=== PATIENT | female | born 1955 | race Caucasian/White ===

== ENCOUNTER 2023-04-19 12:51 | Emergency (ER) | payer OTHER, SELFPAY ==
[2023-04-19 13:06] VITALS: BP 128/71; PULSE 85; RESP 16; TEMP 36.6; O2SAT 96
--- NOTE | 2023-04-19 14:07 | ED.SKABFB ---
HPI - Skin/Abscess/Foreign Bdy General Time Seen by Provider: 14:07 Date Seen: 04/19/23 Chief complaint: Skin/Abscess/Foreign Body Stated complaint: L leg wound Time Seen by Provider: 04/19/23 13:55 Source: patient and RN notes reviewed Mode of arrival: ambulatory Limitations: no limitations History of Present Illness HPI narrative: Camelia is a very pleasant 68-year-old female with history of multiple medication allergies, chronic lower extremity wound wounds, chronic pain who comes to the emergency room for evaluation of drainage from 1 of her wounds. Patient notes that she just moved from [place] to [facility] in [place] 2 days ago. She had been doctoring in the [place] system for lower extremity open wounds. She states over the past 2 days she has had more drainage from this area and now it does have a bad odor to it. She also thinks that there is more erythema than normal and it is coming up higher on her leg. She notes that she is tired but she really has not had any vomiting fever or chills. In the past amoxicillin or Levaquin have worked well for her. She has not yet established with our clinic system nor wound care. Patient denies history of DVT and she denies significant calf tenderness. Related Data Home Medications Medication Instructions Recorded Confirmed acetaminophen 500 mg tablet 1,000 mg PO Q8H 04/19/23 04/19/23 albuterol sulfate 90 mcg/actuation 2 puff inhalation Q4H PRN 04/19/23 04/19/23 aerosol inhaler allopurinol 100 mg tablet 200 mg PO DAILY 04/19/23 04/19/23 aspirin 81 mg chewable tablet 1 tab PO DAILY 04/19/23 04/19/23 bisacodyl 10 mg rectal suppository 10 mg KS DAILY PRN 04/19/23 04/19/23 budesonide-formoterol HFA 160 2 puff inhalation Q12H 04/19/23 04/19/23 mcg-4.5 mcg/actuation aerosol inhaler buprenorphine 4 mg-naloxone 1 mg 1 film sublingual DAILY 04/19/23 04/19/23 sublingual film bupropion HCl (smoking deter) 150 150 mg PO BID 04/19/23 04/19/23 mg tablet,12 hr sustained-release(smoking deterrent) cholecalciferol (vitamin D3) 50 50 mcg PO DAILY 04/19/23 04/19/23 mcg (2,000 unit) capsule cyanocobalamin (vitamin B-12) 1,000 mcg IM .once monthly 04/19/23 04/19/23 1,000 mcg/mL injection solution hydromorphone 2 mg tablet 2 mg PO BID PRN 04/19/23 04/19/23 hydroxyzine HCl 50 mg tablet 50 mg PO 3XD 04/19/23 04/19/23 levothyroxine 137 mcg tablet 137 mcg PO DAILY 04/19/23 04/19/23 lidocaine 4 % topical cream 1 applic topical QID PRN 04/19/23 04/19/23 lubiprostone 24 mcg capsule 24 mcg PO BID 04/19/23 04/19/23 multivit,tx with iron 27 1 tab PO DAILY 04/19/23 04/19/23 zh-ebfrgpi-qgxwy acid 0.4 mg-minerals tablet naloxone 4 mg/actuation nasal spray 1 spray intranasal ONCE PRN 04/19/23 04/19/23 nitroglycerin 0.4 mg sublingual 0.4 mg sublingual Q5M PRN 04/19/23 04/19/23 tablet omeprazole 40 mg capsule,delayed 40 mg PO BID 04/19/23 04/19/23 release polyethylene glycol 3350 17 17 g PO TID 04/19/23 04/19/23 gram/dose oral powder potassium chloride 10 mEq 20 meq PO DAILY 04/19/23 04/19/23 tablet,extended release rosuvastatin 5 mg tablet 5 mg PO .once weekly 04/19/23 04/19/23 sennosides 8.6 mg-docusate sodium 3 tab-cap PO BID 04/19/23 04/19/23 50 mg tablet (Stimulant Laxative Plus) spironolactone 25 mg tablet 50 mg PO DAILY 04/19/23 04/19/23 torsemide 100 mg tablet 100 mg PO DAILY 04/19/23 04/19/23 venlafaxine 150 mg 150 mg PO DAILY 04/19/23 04/19/23 capsule,extended release 24 hr Previous Rx's Medication Instructions Recorded levofloxacin 250 mg tablet 250 mg PO DAILY 6 days #6 tabs 04/19/23 Allergies Allergy/AdvReac Type Severity Reaction Status Date / Time acetaminophen Allergy Unknown Verified 04/19/23 13:18 [From Panlor (hydrocodone-acetamin)] clavulanic acid Allergy Unknown Verified 04/19/23 13:18 codeine Allergy Unknown Verified 04/19/23 13:18 duloxetine Allergy Unknown Verified 04/19/23 13:18 erythromycin base Allergy Unknown Verified 04/19/23 13:18 gabapentin Allergy Unknown Verified 04/19/23 13:18 hydrocodone Allergy Unknown Verified 04/19/23 13:18 ibuprofen Allergy Unknown Verified 04/19/23 13:18 ketorolac Allergy Unknown Verified 04/19/23 13:18 propoxyphene Allergy Unknown Verified 04/19/23 13:18 rizatriptan Allergy Unknown Verified 04/19/23 13:18 sulfamethoxazole Allergy Unknown Verified 04/19/23 13:18 [From Sulfamethoxazole-Trimethoprim] sumatriptan [From Imitrex] Allergy Unknown Verified 04/19/23 13:18 tramadol Allergy Unknown Verified 04/19/23 13:18 trimethoprim Allergy Unknown Verified 04/19/23 13:18 [From Sulfamethoxazole-Trimethoprim] Review of Systems Status of ROS: Reports: 10 or more systems reviewed and unremarkable except as noted in History and below Const: Reports: fatigue; Denies: fever or chills Eyes: Denies: change in vision ENMT: Denies: neck pain or difficulty swallowing Cardio: Reports: swelling of feet/ankles (Chronic); Denies: chest pain, lightheadedness or shortness of breath with exertion Resp: Denies: shortness of breath or cough GI: Denies: abdominal pain, nausea, vomiting or difficulty swallowing : Denies: painful urination Musculo: Reports: extremity swelling (Chronic); Denies: neck pain or extremity pain Integ/Breast: Reports: redness, skin swelling and sores Endo: Reports: fatigue PFSH PFSH Social History Smoking Status: Never smoker Do you use any of these nicotine containing products: None Second hand tobacco smoke exposure: No How often do you have a drink containing alcohol: never AUDIT-C Alcohol total score: 0 Non-prescribed substance use: denies use service: No Exam Narrative: Exam Narrative: Alert and oriented. Nontoxic in appearance. Heart with regular rate in lungs are clear. Abdomen soft. Examination of the left lower extremity shows multiple open wounds the largest being on the lower left leg approximately grapefruit size. There is significant granulation tissue but on the medial edge there is purulent discharge. Further there is a light erythema up to just below the knee. There is some discomfort with palpation on the back of the leg as well. Const: Vital Signs, click to edit/add: Vital Signs - 24 hr 04/19/23 13:06 Temperature 97.8 F Pulse Rate [Pulse Oximeter] 85 Respiratory Rate 16 Blood Pressure [Ri ght Upper Arm] 128/71 Pulse Oximetry 96 Oxygen Delivery Me thod Room Air Documenting provider has reviewed patient's vital signs: yes Course Course ED Course: At this time will obtain labs including CBC, basic, CRP. Do not feel that patient is septic at this time but of course am concerned regarding increasing erythema and discharge. Wound culture has been accomplished. Will also obtain lower extremity Doppler to rule out any evidence of DVT. Reevaluation(s) Reevaluation #1: Patient negative for DVT. White count normal at 10.4 but CRP is elevated at 2.3. Creatinine is 1.5. Potassium was low at 3.3. Reevaluation #2: Nurse practitioner Sushila from the wound care center was able to see Camelia in the ED. They have set up an appointment for next week. In addition we are providing Camelia with wound coverings. Vital Signs Vital signs: Initial Vital Signs Temperature 97.8 F 04/19/23 13:06 Temperature Source Temporal Artery Scan 04/19/23 13:06 Pulse Rate 85 04/19/23 13:06 Respiratory Rate 16 04/19/23 13:06 Blood Pressure 128/71 04/19/23 13:06 Blood Pressure Mean 90 04/19/23 13:06 Blood Pressure Position Sitting 04/19/23 13:06 Pulse Oximetry 96 04/19/23 13:06 Oxygen Delivery Method Room Air 04/19/23 13:06 Vital Signs Temperature 97.8 F 04/19/23 13:06 Pulse Rate 85 04/19/23 13:06 Respiratory Rate 16 04/19/23 13:06 Blood Pressure 128/71 04/19/23 13:06 Pulse Oximetry 96 04/19/23 13:06 Oxygen Delivery Method Room Air 04/19/23 13:06 Temperature 97.8 F 04/19/23 13:06 Pulse Rate 85 04/19/23 13:06 Respiratory Rate 16 04/19/23 13:06 Blood Pressure 128/71 04/19/23 13:06 Pulse Oximetry 96 04/19/23 13:06 Oxygen Delivery Method Room Air 04/19/23 13:06 Medications Administered Medications: Discontinued Medications Generic Name Dose Route Start Last Admin Trade Name Donnie PRN Reason Stop Dose Admin Levofloxacin 250 mg 04/19/23 15:56 04/19/23 16:03 Levofloxacin 250 Mg Tablet PO 04/19/23 15:57 250 mg ONCE ONE Administration MDM - Skin/Abscess/Foreign Bdy MDM Narrative Medical decision making narrative: 1. Lower extremity wound infection-patient creatinine is 1.5. After discussion with pharmacy will use Levaquin as patient notes success with Levaquin and amoxicillin in the past. However, I do have concerns as she does have a creatinine of 1.5 and a GFR of 38. I spoke with pharmacy and we are going to do Levaquin 250 mg daily for 7 days. Will need to make sure she has a creatinine and potassium check next week. Will also have her follow-up with our wound care clinic. 2. Hypokalemia-mild suggest increasing potassium containing foods. 3. Disposition -home at this time. Seek medical attention for vomiting, fever, worsening symptoms. Lab Data Attestation: I reviewed the patient's lab results. Labs: Lab Results 04/19/23 Range/Units 14:35 WBC 10.40 (4.50-11.00) K/uL RBC 3.61 L (4.00-5.20) m/uL Hgb 10.8 L (12.0-16.0) gm/dL Hct 34.4 (33.0-51.0) % MCV 95 (80-100) fL MCH 30 (26-34) pg MCHC 31 L (32-36) gm/dL RDW Coeff of Muriel 15.6 H (11.5-15.5) % Plt Count 355 (140-440) K/uL Neut % (Auto) 62.9 (42.0-72.0) % Lymph % (Auto) 24.4 (20-44) % [place] % (Auto) 8.2 (0.0-11.0) % Eos % (Auto) 4.0 (0.0-7.0) % Baso % (Auto) 0.3 (0.0-3.0) % Neut # (Auto) 6.54 (1.7-7.0) K/uL Lymph # (Auto) 2.54 (0.90-2.90) K/uL [place] # (Auto) 0.90 (0.00-0.90) K/UL Eos # (Auto) 0.42 (0.00-0.50) K/uL Baso # (Auto) 0.03 (0.00-0.30) K/uL Abs Immat Gran (auto) 0.02 (0.00-0.30) K/uL Imm/Tot Granulo (auto) 0.2 % Sodium 137 (135-149) mmol/L Potassium 3.3 L (3.6-5.1) mmol/L Chloride 101 (96-114) mmol/L Carbon Dioxide 28 (20-32) mmol/L Anion Gap 8 (7-15) mEq/L BUN 31 H (7-30) mg/dL Creatinine 1.5 (0.5-1.5) mg/dL Estimated GFR 38 ml/min Glucose 87 (60-115) mg/dL Calcium 8.8 (8.4-10.6) mg/dL C-Reactive Protein 2.3 H (0.5-1.0) mg/dL Imaging Data Venous US: Attestation: I have reviewed the pertinent imaging results. Discharge Plan Discharge Clinical Impression: Hypokalemia Cellulitis Qualifiers: Site of cellulitis: extremity Site of cellulitis of extremity: lower extremity Laterality: left Qualified Code(s): L03.116 - Cellulitis of left lower limb Patient Disposition: Home, Self-Care Condition: Unchanged Additional Instructions: Continue Levaquin for 6 more days. You received your 1st dose here in the emergency room. Subsequent doses sent to the pharmacy. During the that time on Levaquin, stay well hydrated. You will need to have blood work checked next week to ensure no change to your kidney function or potassium levels. You are mildly low in potassium so I would recommend increasing potassium rich foods which include potatoes and vegetables. [place] juice would also contain potassium. Follow-up as previously scheduled. Return to the emergency room for worsening symptoms especially fever chills and vomiting. Prescriptions: New levofloxacin 250 mg tablet 250 mg PO DAILY 6 Days Qty: 6 0RF No Action acetaminophen 500 mg tablet 1,000 mg PO Q8H allopurinol 100 mg tablet 200 mg PO DAILY aspirin 81 mg tablet,chewable 1 tab PO DAILY budesonide-formoterol 160-4.5 mcg/actuation HFA aerosol inhaler 2 puff inhalation Q12H buprenorphine-naloxone 4-1 mg film 1 film sublingual DAILY cyanocobalamin (vitamin B-12) 1,000 mcg/mL solution 1,000 mcg IM .once monthly bupropion HCl (smoking deter) 150 mg tablet extended release 12 hr 150 mg PO BID sennosides-docusate sodium [Stimulant Laxative Plus] 8.6-50 mg tablet 3 tab-cap PO BID multivitamin,[id number]-rgyr-Bw-FA-min 27-0.4 mg tablet 1 tab PO DAILY levothyroxine 137 mcg tablet 137 mcg PO DAILY lubiprostone 24 mcg capsule 24 mcg PO BID omeprazole 40 mg capsule,delayed release(DR/EC) 40 mg PO BID polyethylene glycol 3350 17 gram/dose powder 17 g PO TID potassium chloride 10 mEq tablet extended release 20 meq PO DAILY rosuvastatin 5 mg tablet 5 mg PO .once weekly spironolactone 25 mg tablet 50 mg PO DAILY venlafaxine 150 mg capsule,extended release 24hr 150 mg PO DAILY torsemide 100 mg tablet 100 mg PO DAILY cholecalciferol (vitamin D3) 50 mcg (2,000 unit) capsule 50 mcg PO DAILY albuterol sulfate 90 mcg/actuation HFA aerosol inhaler 2 puff inhalation Q4H PRN bisacodyl 10 mg suppository 10 mg KS DAILY PRN hydromorphone 2 mg tablet 2 mg PO BID PRN Rx Instructions: Take 1 tablet by mouth every morning as needed (between 6-10). Take 1/2 tablet by mouth in the afternoon as needed. Take 1/2 tablet by mouth every evening as needed (between 4-9pm). hydroxyzine HCl 50 mg tablet 50 mg PO 3XD lidocaine 4 % cream 1 applic topical QID PRN naloxone 4 mg/actuation spray,non-aerosol 1 spray INTRANASAL ONCE PRN Patient Comments: [NO ORIGINAL SIG] nitroglycerin 0.4 mg tablet, sublingual 0.4 mg sublingual Q5M PRN Rx Instructions: max 3 tablets Follow Up/Referrals: Provider,Not a Local [Primary Care Provider] - Stand Alone Forms: [employer] Info Instructions
--- NOTE | 2023-04-19 14:45 | CRLHL7_ITS ---
For Patients: As a result of the Century Cures Act, medical imaging exams and procedure reports are released immediately into your electronic medical record. You may view this report before your referring provider. If you have questions, please contact your health care provider. INDICATION: Leg swelling. TECHNIQUE: Ultrasound venous duplex lower left extremity. Compression venous exam was performed using chappell-scale, color Doppler, and spectral Doppler analysis. COMPARISON: None. FINDINGS: Deep veins: Sonographic imaging demonstrates the left common femoral, deep femoral, superficial femoral, popliteal, posterior tibial, peroneal and the contralateral right common femoral veins to be fully compressible with normal color Doppler blood flow. Superficial veins: Greater saphenous vein is fully compressible. No popliteal cyst. Mild soft tissue edema at the level of the calf. IMPRESSION: No deep vein thrombosis in the left lower extremity. Dictated by Diego Rice MD @ 04/19/2023 3:55:32 PM (Electronically Signed)
[2023-04-19 14:47] LABS: Basophils Absolute Auto 0.03 K/uL (0.00-0.30); Basophils Percent Auto 0.3 % (0.0-3.0); Eosinophils Absolute Auto 0.42 K/uL (0.00-0.50); Hematocrit 34.4 % (33.0-51.0); Hemoglobin* 10.8 gm/dL (12.0-16.0); Immature Granulocytes Abs Auto 0.02 K/uL (0.00-0.30); Immature Granulocytes Pct Auto 0.2 %; Lymphocytes Absolute Auto 2.54 K/uL (0.90-2.90); Lymphocytes Percent Auto 24.4 % (20-44); Mean Corpuscular HGB Conc 31 gm/dL (32-36); Mean Corpuscular Hemoglobin 30 pg (26-34); Mean Corpuscular Volume 95 fL (80-100); Monocytes Percent Auto 8.2 % (0.0-11.0); Neutrophils Absolute Auto 6.54 K/uL (1.7-7.0); Neutrophils Percent Auto 62.9 % (42.0-72.0); Platelet Count* 355 K/uL (140-440); RDW Coefficient of Variation % 15.6 % (11.5-15.5); Red Blood Count 3.61 m/uL (4.00-5.20)
[2023-04-19 14:55] LABS: Slide Review Reflex No
[2023-04-19 15:09] LABS: Chloride* 101 mmol/L (96-114); Potassium* 3.3 mmol/L (3.6-5.1); Sodium* 137 mmol/L (135-149)
[2023-04-19 15:12] LABS: Creatinine* 1.5 mg/dL (0.5-1.5); Estimated Glomerular Filt Rate 38 ml/min
[2023-04-19 15:13] LABS: Anion Gap 8 mEq/L (7-15); Blood Urea Nitrogen* 31 mg/dL (7-30); Calcium* 8.8 mg/dL (8.4-10.6); Carbon Dioxide* 28 mmol/L (20-32); Glucose* 87 mg/dL (60-115)
[2023-04-19 15:16] LABS: C Reactive Protein* 2.3 mg/dL (0.5-1.0)
[2023-04-19] MEDS: levoFLOXacin 250 MG TABLET PO (16:03)
--- NOTE | 2023-04-19 16:15 | ED.NURSE ---
Wound dressed using instructions from [facility] in [facility] Clinic. MediHoney applied to open wound beds. These areas then covered with Xeroform petroleum gauze. ABD pads applied on top of Xeroform and secured with large stockinet. Instructions written on physician order form for pt's AL. Per Dorys, continue dressing changes every Sunday, , and Sunday as previously doing. Wound Clinic appointment @ 0800 on 05/01/23. All information placed on physician paperwork.
== END 2023-04-19 16:20 | disposition home or self-care (01) ==
PROVIDERS: Emergency Provider Family Medicine
DX: L03.116 Cellulitis of left lower limb (principal); E87.6 Hypokalemia
CPT/HCPCS: 36415; 80048; 85025; 86140; 87040; 87070; 87186; 93971; 99284; A9270

== ENCOUNTER 2023-05-01 07:58 | Outpatient (CLI) | payer OTHER, SELFPAY | END 2023-05-01 07:59 | disposition home or self-care (01) | LOC: WOUND 07:59 | PROVIDERS: Visit Provider Nurse Practitioner Family | DX: I87.313 Chronic venous hypertension (idiopathic) with ulcer of bilateral lower extremity (principal); L97.212 Non-pressure chronic ulcer of right calf with fat layer exposed; L97.818 Non-pressure chronic ulcer of other part of right lower leg with other specified severity; L97.822 Non-pressure chronic ulcer of other part of left lower leg with fat layer exposed; L97.828 Non-pressure chronic ulcer of other part of left lower leg with other specified severity; I89.0 Lymphedema, not elsewhere classified; I87.2 Venous insufficiency (chronic) (peripheral) | CPT/HCPCS: 11042; 11045; 97602; 99213 ==

== ENCOUNTER 2023-05-10 09:57 | Outpatient (CLI) | payer OTHER, SELFPAY | END 2023-05-10 09:58 | disposition home or self-care (01) | LOC: WOUND 09:57 | PROVIDERS: Visit Provider Nurse Practitioner Family | DX: I87.313 Chronic venous hypertension (idiopathic) with ulcer of bilateral lower extremity (principal); I89.0 Lymphedema, not elsewhere classified; I87.2 Venous insufficiency (chronic) (peripheral); L97.818 Non-pressure chronic ulcer of other part of right lower leg with other specified severity; L97.828 Non-pressure chronic ulcer of other part of left lower leg with other specified severity; L97.222 Non-pressure chronic ulcer of left calf with fat layer exposed; L97.212 Non-pressure chronic ulcer of right calf with fat layer exposed | CPT/HCPCS: 29581 ==

== ENCOUNTER 2023-05-17 09:28 | Outpatient (CLI) | payer OTHER, SELFPAY | END 2023-05-17 09:29 | disposition home or self-care (01) | LOC: WOUND 09:28 | PROVIDERS: Visit Provider Family Medicine | DX: I87.313 Chronic venous hypertension (idiopathic) with ulcer of bilateral lower extremity (principal); L97.812 Non-pressure chronic ulcer of other part of right lower leg with fat layer exposed; L97.212 Non-pressure chronic ulcer of right calf with fat layer exposed; L97.822 Non-pressure chronic ulcer of other part of left lower leg with fat layer exposed; I89.0 Lymphedema, not elsewhere classified; I87.2 Venous insufficiency (chronic) (peripheral) | CPT/HCPCS: 11042; 11045 ==

== ENCOUNTER 2023-05-25 12:56 | Outpatient (CLI) | payer OTHER, SELFPAY | END 2023-05-25 12:57 | disposition home or self-care (01) | LOC: WOUND 12:56 | PROVIDERS: Visit Provider Nurse Practitioner Family | DX: I87.313 Chronic venous hypertension (idiopathic) with ulcer of bilateral lower extremity (principal); I87.2 Venous insufficiency (chronic) (peripheral); L97.812 Non-pressure chronic ulcer of other part of right lower leg with fat layer exposed; L97.822 Non-pressure chronic ulcer of other part of left lower leg with fat layer exposed; I89.0 Lymphedema, not elsewhere classified | CPT/HCPCS: 87070; 87186; 97597; G0463 ==

== ENCOUNTER 2023-06-08 13:57 | Outpatient (CLI) | payer OTHER, SELFPAY | END 2023-06-08 13:58 | disposition home or self-care (01) | LOC: WOUND 13:57 | PROVIDERS: Visit Provider Nurse Practitioner Family | DX: I87.313 Chronic venous hypertension (idiopathic) with ulcer of bilateral lower extremity (principal); L97.812 Non-pressure chronic ulcer of other part of right lower leg with fat layer exposed; L97.212 Non-pressure chronic ulcer of right calf with fat layer exposed; L97.822 Non-pressure chronic ulcer of other part of left lower leg with fat layer exposed; I89.0 Lymphedema, not elsewhere classified | CPT/HCPCS: 97597 ==

== ENCOUNTER 2023-06-15 13:56 | Outpatient (CLI) | payer MEDICARE, MEDICAID, SELFPAY | END 2023-06-15 13:57 | disposition home or self-care (01) | LOC: WOUND 13:56 | PROVIDERS: Visit Provider Nurse Practitioner Family | DX: I87.313 Chronic venous hypertension (idiopathic) with ulcer of bilateral lower extremity (principal); I87.2 Venous insufficiency (chronic) (peripheral); L97.812 Non-pressure chronic ulcer of other part of right lower leg with fat layer exposed; L97.212 Non-pressure chronic ulcer of right calf with fat layer exposed; L97.822 Non-pressure chronic ulcer of other part of left lower leg with fat layer exposed; I89.0 Lymphedema, not elsewhere classified | CPT/HCPCS: 97597 ==

== ENCOUNTER 2023-06-22 13:59 | Outpatient (CLI) | payer MEDICARE, MEDICAID, SELFPAY | END 2023-06-22 14:00 | disposition home or self-care (01) | LOC: WOUND 13:59 | PROVIDERS: Visit Provider Nurse Practitioner Family | DX: I87.313 Chronic venous hypertension (idiopathic) with ulcer of bilateral lower extremity (principal); L97.212 Non-pressure chronic ulcer of right calf with fat layer exposed; L97.822 Non-pressure chronic ulcer of other part of left lower leg with fat layer exposed; I89.0 Lymphedema, not elsewhere classified | CPT/HCPCS: 97597 ==

== ENCOUNTER 2023-06-29 13:56 | Outpatient (CLI) | payer MEDICARE, MEDICAID, SELFPAY | END 2023-06-29 13:57 | disposition home or self-care (01) | LOC: WOUND 13:56 | PROVIDERS: Visit Provider Nurse Practitioner Family | DX: I87.313 Chronic venous hypertension (idiopathic) with ulcer of bilateral lower extremity (principal); L97.212 Non-pressure chronic ulcer of right calf with fat layer exposed; L97.822 Non-pressure chronic ulcer of other part of left lower leg with fat layer exposed; I87.2 Venous insufficiency (chronic) (peripheral); I89.0 Lymphedema, not elsewhere classified | CPT/HCPCS: 97597 ==

== ENCOUNTER 2023-07-04 15:02 | Emergency (ER) | payer MEDICARE, MEDICAID, SELFPAY ==
[2023-07-04 15:11] VITALS: BP 123/65; PULSE 78; RESP 14; TEMP 36.8; O2SAT 96
[2023-07-04 15:45] LABS: Lactate* 0.8 mmol/L (0.5-1.9)
[2023-07-04 15:50] LABS: Basophils Absolute Auto 0.03 K/uL (0.00-0.30); Basophils Percent Auto 0.3 % (0.0-3.0); Eosinophils Absolute Auto 0.41 K/uL (0.00-0.50); Eosinophils Percent Auto 4.7 % (0.0-7.0); Hematocrit 39.7 % (33.0-51.0); Hemoglobin* 12.8 gm/dL (12.0-16.0); Immature Granulocytes Abs Auto 0.01 K/uL (0.00-0.30); Immature Granulocytes Pct Auto 0.1 %; Lymphocytes Absolute Auto 3.84 K/uL (0.90-2.90); Lymphocytes Percent Auto 43.9 % (20-44); Mean Corpuscular HGB Conc 32 gm/dL (32-36); Mean Corpuscular Hemoglobin 30 pg (26-34); Mean Corpuscular Volume 93 fL (80-100); Monocytes Percent Auto 8.6 % (0.0-11.0); Neutrophils Percent Auto 42.4 % (42.0-72.0); Platelet Count* 302 K/uL (140-440); RDW Coefficient of Variation % 16.6 % (11.5-15.5); Red Blood Count 4.25 m/uL (4.00-5.20); White Blood Count* 8.74 K/uL (4.50-11.00)
[2023-07-04 15:51] LABS: Slide Review Reflex No
--- NOTE | 2023-07-04 15:59 | ED.NURSE ---
White pustule noted in wound bed on LLE.
[2023-07-04 16:12] LABS: Chloride* 100 mmol/L (96-114); Sodium* 137 mmol/L (135-149)
[2023-07-04 16:15] LABS: Anion Gap 10 mEq/L (7-15); Carbon Dioxide* 27 mmol/L (20-32); Creatinine* 1.3 mg/dL (0.5-1.5); Estimated Glomerular Filt Rate 45 ml/min; Potassium* 3.5 mmol/L (3.6-5.1)
[2023-07-04 16:16] LABS: Blood Urea Nitrogen* 38 mg/dL (7-30); Glucose* 85 mg/dL (60-115)
[2023-07-04 16:19] LABS: Calcium* 9.3 mg/dL (8.4-10.6)
--- NOTE | 2023-07-04 17:25 | ED_ITS ---
HPI - Skin/Abscess/Foreign Bdy General Date Seen: 07/04/23 Chief complaint: Skin/Abscess/Foreign Body Stated complaint: Wound issues both lower legs-sent by [facility] Time Seen by Provider: 07/04/23 16:34 Source: patient Mode of arrival: ambulatory Limitations: no limitations History of Present Illness HPI narrative: Patient is a 68-year-old female presenting to the emergency department for worsening wounds on bilateral lower extremities. She is history of venous stasis ulcers. She lives at [facility] periods nursing staff brought her in today because they were concerned she could be having sepsis because of the worsening appearance of the wounds. The patient states the wound sizes are the same but she said increased erythema and discomfort over bilateral lower extremities. She recently finished Flagyl and doxycycline for this. She did have some cat bites on her legs and that is why she was placed on the antibiotics. Has a history of lymphedema. States in the past she has got dizziness and nausea and vomiting with antibiotics. Does admit to headache and dizziness for the past few days and this a blood pressure has been on the lower end. Patient states she sees Wound Care every Sunday and she does think the redness is worse than previous time she saw wound care last week. Does have appointments this Sunday with a vascular physician about her wounds. Has been seen them for these wounds and I previous ultrasound studies done. She otherwise has no other complaints at this time. Denies weakness, numbness, chest pain, shortness of breath, fevers, chills. Related Data Home Medications Medication Instructions Recorded Confirmed acetaminophen 500 mg tablet 1,000 mg PO Q8H 04/19/23 07/04/23 albuterol sulfate 90 mcg/actuation 2 puff inhalation Q4H PRN 04/19/23 04/19/23 aerosol inhaler allopurinol 100 mg tablet 200 mg PO DAILY 04/19/23 07/04/23 aspirin 81 mg chewable tablet 1 tab PO DAILY 04/19/23 07/04/23 bisacodyl 10 mg rectal suppository 10 mg [place] DAILY PRN 04/19/23 04/19/23 budesonide-formoterol HFA 160 2 puff inhalation Q12H 04/19/23 07/04/23 mcg-4.5 mcg/actuation aerosol inhaler buprenorphine 4 mg-naloxone 1 mg 1 film sublingual DAILY 04/19/23 07/04/23 sublingual film bupropion HCl (smoking deter) 150 150 mg PO BID 04/19/23 04/19/23 mg tablet,12 hr sustained-release(smoking deterrent) cholecalciferol (vitamin D3) 50 50 mcg PO DAILY 04/19/23 07/04/23 mcg (2,000 unit) capsule cyanocobalamin (vitamin B-12) 1,000 mcg IM .once monthly 04/19/23 07/04/23 1,000 mcg/mL injection solution hydromorphone 2 mg tablet 2 mg PO BID PRN 04/19/23 07/04/23 hydroxyzine HCl 50 mg tablet 50 mg PO 3XD 04/19/23 07/04/23 levothyroxine 137 mcg tablet 137 mcg PO DAILY 04/19/23 07/04/23 lidocaine 4 % topical cream 1 applic topical QID PRN 04/19/23 04/19/23 lubiprostone 24 mcg capsule 24 mcg PO BID 04/19/23 07/04/23 multivit,tx with iron 27 1 tab PO DAILY 04/19/23 04/19/23 ki-[id number]-khmkw acid 0.4 mg-minerals tablet naloxone 4 mg/actuation nasal spray 1 spray intranasal ONCE PRN 04/19/2312/03 nitroglycerin 0.4 mg sublingual 0.4 mg sublingual Q5M PRN 04/19/23 04/19/23 tablet omeprazole 40 mg capsule,delayed 40 mg PO BID 04/19/23 07/04/23 release polyethylene glycol 3350 17 17 g PO TID 04/19/23 07/04/23 gram/dose oral powder potassium chloride 10 mEq 20 meq PO DAILY 04/19/23 07/04/23 tablet,extended release rosuvastatin 5 mg tablet 5 mg PO .once weekly 04/19/23 07/04/23 sennosides 8.6 mg-docusate sodium 3 tab-cap PO BID 04/19/23 04/19/23 50 mg tablet (Stimulant Laxative Plus) spironolactone 25 mg tablet 50 mg PO DAILY 04/19/23 07/04/23 torsemide 100 mg tablet 100 mg PO DAILY 04/19/23 07/04/23 venlafaxine 150 mg 150 mg PO DAILY 04/19/23 07/04/23 capsule,extended release 24 hr Previous Rx's Medication Instructions Recorded acetic acid 0.25 % irrigation 10 ml irrigation .every other day 04/19/23 solution #500 mL doxycycline hyclate 100 mg capsule 100 mg PO BID #10 caps 07/04/23 Allergies Allergy/AdvReac Type Severity Reaction Status Date / Time acetaminophen Allergy Unknown Verified 04/19/23 13:18 [From Panlor (hydrocodone-acetamin)] clavulanic acid Allergy Unknown Verified 04/19/23 13:18 codeine Allergy Unknown Verified 04/19/23 13:18 duloxetine Allergy Unknown Verified 04/19/23 13:18 erythromycin base Allergy Unknown Verified 04/19/23 13:18 gabapentin Allergy Unknown Verified 04/19/23 13:18 hydrocodone Allergy Unknown Verified 04/19/23 13:18 ibuprofen Allergy Unknown Verified 04/19/23 13:18 ketorolac Allergy Unknown Verified 04/19/23 13:18 propoxyphene Allergy Unknown Verified 04/19/23 13:18 rizatriptan Allergy Unknown Verified 04/19/23 13:18 sulfamethoxazole Allergy Unknown Verified 04/19/23 13:18 [From Sulfamethoxazole-Trimethoprim] sumatriptan [From Imitrex] Allergy Unknown Verified 04/19/23 13:18 tramadol Allergy Unknown Verified 04/19/23 13:18 trimethoprim Allergy Unknown Verified 04/19/23 13:18 [From Sulfamethoxazole-Trimethoprim] Review of Systems Status of ROS: Reports: 10 or more systems reviewed and unremarkable except as noted in History and below [facility] Social History Smoking Status: Never smoker Do you use any of these nicotine containing products: None Second hand tobacco smoke exposure: No How often do you have a drink containing alcohol: never AUDIT-C Alcohol total score: 0 Non-prescribed substance use: denies use service: No Exam Narrative: Exam Narrative: Const: Well-nourished, Well-developed, in no distress Eyes: PERRL, no conjunctival injection, and symmetrical lids HENT: Atraumatic external nose and ears. Moist mucous membranes. Neck: Symmetric, trachea midline, No thyromegaly. CVS: RRR, No murmurs or gallops. Peripheral pulses 2+ and equal in all extremities RESP: Unlabored respiratory effort. Clear to auscultation bilaterally. GI: Nontender/Nondistended, No rebound or guarding. MSK:Extremities w/o deformity, Normal Active ROM Skin: Warm, Dry. Bilateral lower extremity lesions left worse than right with surrounding erythema Neuro: Normal Muscle tone, No focal neurological deficits. Psych: Awake, Alert, & Oriented x3. Appropriate mood and affect. Const: Vital Signs, click to edit/add: Vital Signs - 24 hr 07/04/23 15:11 Temperature 98.2 F Pulse Rate [Pulse Oximeter] 78 Respiratory Rate 14 Blood Pressure [[facility] Upper [facility]] 123/65 Pulse Oximetry 96 Oxygen Delivery Me thod Room Air Course Vital Signs Vital signs: Initial Vital Signs Temperature 98.2 F 07/04/23 15:11 Temperature Source Temporal Artery Scan 07/04/23 15:11 Pulse Rate 78 07/04/23 15:11 Pulse Rhythm Regular 07/04/23 15:11 Respiratory Rate 14 07/04/23 15:11 Blood Pressure 123/65 07/04/23 15:11 Blood Pressure Mean 84 07/04/23 15:11 Blood Pressure Position Sitting 07/04/23 15:11 Pulse Oximetry 96 07/04/23 15:11 Oxygen Delivery Method Room Air 07/04/23 15:11 Vital Signs Temperature 98.2 F 07/04/23 15:11 Pulse Rate 78 07/04/23 15:11 Respiratory Rate 14 07/04/23 15:11 Blood Pressure 123/65 07/04/23 15:11 Pulse Oximetry 96 07/04/23 15:11 Oxygen Delivery Method Room Air 07/04/23 15:11 Temperature 98.2 F 07/04/23 15:11 Pulse Rate 78 07/04/23 15:11 Respiratory Rate 14 07/04/23 15:11 Blood Pressure 123/65 07/04/23 15:11 Pulse Oximetry 96 07/04/23 15:11 Oxygen Delivery Method Room Air 07/04/23 15:11 MDM - Skin/Abscess/Foreign Bdy MDM Narrative Medical decision making narrative: Patient is a 68 year female presenting for evaluation of her lower extremities for increasing cellulitis. She was on doxycycline Flagyl for a cat bite on her right wrist is only 5 days worth. Unsure why she is put on the specific medicines. There was concern for sepsis. Her vital signs here have been completely within normal limits. We did do CBC, BMP, blood cultures and a lactate. All those labs came back without any concerning abnormalities. She is otherwise feeling well at this time. She says she has a mild headache but can take her home pain medications when she goes home. She has wants to make sure she did not need any further intervention at this time. She states she is otherwise feeling well and is just tired and wants to go to bed. While her I cannot say for certain this has anything to do with infection I will treat it as if it was as precautionary measure until she can get follow-up. This very well could be from her vascular issues of her legs. At this time we will place her back on doxycycline and have her follow-up with her vascular surgeon she is scheduled to see this Sunday for her venous stasis. She is agreeable to this plan. Will be discharged Lab Data Labs: Lab Results 07/04/23 Range/Units 15:35 WBC 8.74 (4.50-11.00) K/uL RBC 4.25 (4.00-5.20) m/uL Hgb 12.8 (12.0-16.0) gm/dL Hct 39.7 (33.0-51.0) % MCV 93 (80-100) fL MCH 30 (26-34) pg MCHC 32 (32-36) gm/dL RDW Coeff of Muriel 16.6 H (11.5-15.5) % Plt Count 302 (140-440) K/uL Neut % (Auto) 42.4 (42.0-72.0) % Lymph % (Auto) 43.9 (20-44) % [place] % (Auto) 8.6 (0.0-11.0) % Eos % (Auto) 4.7 (0.0-7.0) % Baso % (Auto) 0.3 (0.0-3.0) % Neut # (Auto) 3.70 (1.7-7.0) K/uL Lymph # (Auto) 3.84 H (0.90-2.90) K/uL [place] # (Auto) 0.80 (0.00-0.90) K/UL Eos # (Auto) 0.41 (0.00-0.50) K/uL Baso # (Auto) 0.03 (0.00-0.30) K/uL Abs Immat Gran (auto) 0.01 (0.00-0.30) K/uL Imm/Tot Granulo (auto) 0.1 % Sodium 137 (135-149) mmol/L Potassium 3.5 L (3.6-5.1) mmol/L Chloride 100 (96-114) mmol/L Carbon Dioxide 27 (20-32) mmol/L Anion Gap 10 (7-15) mEq/L BUN 38 H (7-30) mg/dL Creatinine 1.3 (0.5-1.5) mg/dL Estimated GFR 45 ml/min Glucose 85 (60-115) mg/dL Lactate 0.8 (0.5-1.9) mmol/L Calcium 9.3 (8.4-10.6) mg/dL Discharge Plan Discharge Clinical Impression: Venous stasis ulcer of left calf with fat layer exposed Qualifiers: Varicose vein presence: unspecified whether present Qualified Code(s): I83.022 - Varicose veins of left lower extremity with ulcer of calf Patient Disposition: Home, Self-Care Condition: Stable Instructions: Chronic Wounds (ED) Additional Instructions: Make sure you follow-up with your no vascular surgeon this Sunday. Continue to take the doxycycline. A new prescription for another 5 days was given Prescriptions: New doxycycline hyclate 100 mg capsule 100 mg PO BID Qty: 10 0RF No Action acetaminophen 500 mg tablet 1,000 mg PO Q8H allopurinol 100 mg tablet 200 mg PO DAILY aspirin 81 mg tablet,chewable 1 tab PO DAILY budesonide-formoterol 160-4.5 mcg/actuation HFA aerosol inhaler 2 puff inhalation Q12H buprenorphine-naloxone 4-1 mg film 1 film sublingual DAILY cyanocobalamin (vitamin B-12) 1,000 mcg/mL solution 1,000 mcg IM .once monthly bupropion HCl (smoking deter) 150 mg tablet extended release 12 hr 150 mg PO BID sennosides-docusate sodium [Stimulant Laxative Plus] 8.6-50 mg tablet 3 tab-cap PO BID multivitamin,lv-fmvq-Xf-FA-min 27-0.4 mg tablet 1 tab PO DAILY levothyroxine 137 mcg tablet 137 mcg PO DAILY lubiprostone 24 mcg capsule 24 mcg PO BID omeprazole 40 mg capsule,delayed release(DR/EC) 40 mg PO BID polyethylene glycol 3350 17 gram/dose powder 17 g PO TID potassium chloride 10 mEq tablet extended release 20 meq PO DAILY rosuvastatin 5 mg tablet 5 mg PO .once weekly spironolactone 25 mg tablet 50 mg PO DAILY venlafaxine 150 mg capsule,extended release 24hr 150 mg PO DAILY torsemide 100 mg tablet 100 mg PO DAILY cholecalciferol (vitamin D3) 50 mcg (2,000 unit) capsule 50 mcg PO DAILY albuterol sulfate 90 mcg/actuation HFA aerosol inhaler 2 puff inhalation Q4H PRN bisacodyl 10 mg suppository 10 mg [place] DAILY PRN hydromorphone 2 mg tablet 2 mg PO BID PRN Rx Instructions: Take 1 tablet by mouth every morning as needed (between 6-10). Take 1/2 tablet by mouth in the afternoon as needed. Take 1/2 tablet by mouth every evening as needed (between 4-9pm). hydroxyzine HCl 50 mg tablet 50 mg PO 3XD lidocaine 4 % cream 1 applic topical QID PRN naloxone 4 mg/actuation spray,non-aerosol 1 spray INTRANASAL ONCE PRN Patient Comments: [NO ORIGINAL SIG] nitroglycerin 0.4 mg tablet, sublingual 0.4 mg sublingual Q5M PRN Rx Instructions: max 3 tablets acetic acid 0.25 % solution 10 ml irrigation .every other day Qty: 500 0RF Rx Instructions: apply to gauze, soak on wound for 10min. every other day and PRN Follow Up/Referrals: Provider,Not a Local [Primary Care Provider] - Stand Alone Forms: [employer] Info Instructions
[2023-07-04 18:20] VITALS: BP 123/65; PULSE 78; RESP 14; TEMP 36.8
--- NOTE | 2023-07-04 18:23 | ED.NURSE ---
ABD pad placed on each wound by EDT, per Pt request. Pt assisted with dressing socks.
== END 2023-07-04 18:20 | disposition home or self-care (01) ==
PROVIDERS: Family Medicine; Emergency Provider Student in an Organized Health Care Education/Training Program
DX: I83.022 Varicose veins of left lower extremity with ulcer of calf (principal)
CPT/HCPCS: 36415; 80048; 83605; 85025; 87040; 99283

== ENCOUNTER 2023-07-13 13:57 | Outpatient (CLI) | payer MEDICARE, MEDICAID, SELFPAY | END 2023-07-13 13:58 | disposition home or self-care (01) | LOC: WOUND 13:58 | PROVIDERS: Visit Provider Nurse Practitioner Family | DX: I87.312 Chronic venous hypertension (idiopathic) with ulcer of left lower extremity (principal); I87.2 Venous insufficiency (chronic) (peripheral); L97.822 Non-pressure chronic ulcer of other part of left lower leg with fat layer exposed; I89.0 Lymphedema, not elsewhere classified | CPT/HCPCS: 97597 ==

== ENCOUNTER 2023-07-20 13:58 | Outpatient (CLI) | payer MEDICARE, MEDICAID, SELFPAY | END 2023-07-20 13:59 | disposition home or self-care (01) | LOC: WOUND 13:58 | PROVIDERS: Visit Provider Nurse Practitioner Family | DX: I87.312 Chronic venous hypertension (idiopathic) with ulcer of left lower extremity (principal); L97.822 Non-pressure chronic ulcer of other part of left lower leg with fat layer exposed; L97.828 Non-pressure chronic ulcer of other part of left lower leg with other specified severity; I89.0 Lymphedema, not elsewhere classified | CPT/HCPCS: 11042; 97597 ==

== ENCOUNTER 2023-07-27 10:00 | Outpatient (CLI) | payer MEDICARE, MEDICAID, SELFPAY | END 2023-07-27 10:01 | disposition home or self-care (01) | LOC: WOUND 10:00 | PROVIDERS: Visit Provider Nurse Practitioner Family | DX: I87.312 Chronic venous hypertension (idiopathic) with ulcer of left lower extremity (principal); I87.2 Venous insufficiency (chronic) (peripheral); L97.822 Non-pressure chronic ulcer of other part of left lower leg with fat layer exposed; I89.0 Lymphedema, not elsewhere classified | CPT/HCPCS: 97597 ==

== ENCOUNTER 2023-08-03 14:01 | Outpatient (CLI) | payer MEDICARE, MEDICAID, SELFPAY | END 2023-08-03 14:02 | disposition home or self-care (01) | LOC: WOUND 14:01 | PROVIDERS: Visit Provider Nurse Practitioner Family | DX: I87.312 Chronic venous hypertension (idiopathic) with ulcer of left lower extremity (principal); I87.2 Venous insufficiency (chronic) (peripheral); L97.822 Non-pressure chronic ulcer of other part of left lower leg with fat layer exposed; I89.0 Lymphedema, not elsewhere classified | CPT/HCPCS: 11042; 87070; 87186 ==

== ENCOUNTER 2023-08-10 13:56 | Outpatient (CLI) | payer MEDICARE, MEDICAID, SELFPAY | END 2023-08-10 13:57 | disposition home or self-care (01) | LOC: WOUND 13:56 | PROVIDERS: Visit Provider Family Medicine | DX: I87.312 Chronic venous hypertension (idiopathic) with ulcer of left lower extremity (principal); I87.2 Venous insufficiency (chronic) (peripheral); L97.822 Non-pressure chronic ulcer of other part of left lower leg with fat layer exposed; L03.116 Cellulitis of left lower limb; B95.61 Methicillin susceptible Staphylococcus aureus infection as the cause of diseases classified elsewhere; I89.0 Lymphedema, not elsewhere classified | CPT/HCPCS: 11042 ==

== ENCOUNTER 2023-08-17 13:59 | Outpatient (CLI) | payer MEDICARE, MEDICAID, SELFPAY | END 2023-08-17 14:00 | disposition home or self-care (01) | LOC: WOUND 13:59 | PROVIDERS: Visit Provider Nurse Practitioner Family | DX: I87.312 Chronic venous hypertension (idiopathic) with ulcer of left lower extremity (principal); I87.2 Venous insufficiency (chronic) (peripheral); I89.0 Lymphedema, not elsewhere classified; L97.822 Non-pressure chronic ulcer of other part of left lower leg with fat layer exposed | CPT/HCPCS: 97597 ==

== ENCOUNTER 2023-08-24 13:57 | Outpatient (CLI) | payer MEDICARE, MEDICAID, SELFPAY | END 2023-08-24 13:58 | disposition home or self-care (01) | LOC: WOUND 13:57 | PROVIDERS: Visit Provider Nurse Practitioner Family | DX: I87.312 Chronic venous hypertension (idiopathic) with ulcer of left lower extremity (principal); I87.2 Venous insufficiency (chronic) (peripheral); L97.822 Non-pressure chronic ulcer of other part of left lower leg with fat layer exposed; I89.0 Lymphedema, not elsewhere classified | CPT/HCPCS: 11042 ==

== ENCOUNTER 2023-08-31 14:02 | Outpatient (CLI) | payer MEDICARE, MEDICAID, SELFPAY | END 2023-08-31 14:03 | disposition home or self-care (01) | LOC: WOUND 14:02 | PROVIDERS: Visit Provider Nurse Practitioner Family | DX: I87.312 Chronic venous hypertension (idiopathic) with ulcer of left lower extremity (principal); I87.2 Venous insufficiency (chronic) (peripheral); L97.822 Non-pressure chronic ulcer of other part of left lower leg with fat layer exposed; I89.0 Lymphedema, not elsewhere classified | CPT/HCPCS: 97597 ==

== ENCOUNTER 2023-09-07 13:57 | Outpatient (CLI) | payer MEDICARE, MEDICAID, SELFPAY | END 2023-09-07 13:58 | disposition home or self-care (01) | LOC: WOUND 13:57 | PROVIDERS: Visit Provider Nurse Practitioner Family | DX: I87.312 Chronic venous hypertension (idiopathic) with ulcer of left lower extremity (principal); I87.2 Venous insufficiency (chronic) (peripheral); L97.822 Non-pressure chronic ulcer of other part of left lower leg with fat layer exposed; I89.0 Lymphedema, not elsewhere classified | CPT/HCPCS: 97597 ==

== ENCOUNTER 2023-09-14 13:58 | Outpatient (CLI) | payer MEDICARE, MEDICAID, SELFPAY | END 2023-09-14 13:59 | disposition home or self-care (01) | LOC: WOUND 13:58 | PROVIDERS: Visit Provider Nurse Practitioner Family | DX: I87.312 Chronic venous hypertension (idiopathic) with ulcer of left lower extremity (principal); I87.2 Venous insufficiency (chronic) (peripheral); L97.822 Non-pressure chronic ulcer of other part of left lower leg with fat layer exposed | CPT/HCPCS: 97597 ==

== ENCOUNTER 2023-09-16 09:07 | Outpatient (CLI) | payer MEDICARE, MEDICAID, SELFPAY | END 2023-09-16 09:08 | disposition home or self-care (01) | LOC: NFLDREF 09-17 05:13 | PROVIDERS: Visit Provider Physician Assistant | DX: N39.0 Urinary tract infection, site not specified (principal); B96.20 Unspecified Escherichia coli [E. coli] as the cause of diseases classified elsewhere | CPT/HCPCS: 87086; 87186 ==

== ENCOUNTER 2023-09-21 13:54 | Outpatient (CLI) | payer MEDICARE, MEDICAID, SELFPAY | END 2023-09-21 13:55 | disposition home or self-care (01) | LOC: WOUND 13:54 | PROVIDERS: Visit Provider Nurse Practitioner Family | DX: I87.312 Chronic venous hypertension (idiopathic) with ulcer of left lower extremity (principal); I87.2 Venous insufficiency (chronic) (peripheral); I89.0 Lymphedema, not elsewhere classified; L97.822 Non-pressure chronic ulcer of other part of left lower leg with fat layer exposed; F17.210 Nicotine dependence, cigarettes, uncomplicated | CPT/HCPCS: 11042 ==

== ENCOUNTER 2023-09-28 13:57 | Outpatient (CLI) | payer MEDICARE, MEDICAID, SELFPAY | END 2023-09-28 13:58 | disposition home or self-care (01) | LOC: WOUND 13:57 | PROVIDERS: Visit Provider Physician Assistant Surgical | DX: I87.312 Chronic venous hypertension (idiopathic) with ulcer of left lower extremity (principal); I87.2 Venous insufficiency (chronic) (peripheral); I89.0 Lymphedema, not elsewhere classified; L97.822 Non-pressure chronic ulcer of other part of left lower leg with fat layer exposed; F17.210 Nicotine dependence, cigarettes, uncomplicated | CPT/HCPCS: 11042 ==

== ENCOUNTER 2023-10-05 14:00 | Outpatient (CLI) | payer MEDICARE, MEDICAID, SELFPAY | END 2023-10-05 14:01 | disposition home or self-care (01) | LOC: WOUND 14:01 | PROVIDERS: Visit Provider Physician Assistant | DX: I87.312 Chronic venous hypertension (idiopathic) with ulcer of left lower extremity (principal); I87.2 Venous insufficiency (chronic) (peripheral); L97.822 Non-pressure chronic ulcer of other part of left lower leg with fat layer exposed | CPT/HCPCS: 97597 ==

== ENCOUNTER 2023-10-12 14:00 | Outpatient (CLI) | payer MEDICARE, MEDICAID, SELFPAY | END 2023-10-12 14:01 | disposition home or self-care (01) | LOC: WOUND 14:00 | PROVIDERS: Visit Provider Nurse Practitioner Family | DX: I87.312 Chronic venous hypertension (idiopathic) with ulcer of left lower extremity (principal); I87.2 Venous insufficiency (chronic) (peripheral); L97.822 Non-pressure chronic ulcer of other part of left lower leg with fat layer exposed; F17.210 Nicotine dependence, cigarettes, uncomplicated | CPT/HCPCS: 11042 ==

== ENCOUNTER 2023-10-19 13:56 | Outpatient (CLI) | payer MEDICARE, MEDICAID, SELFPAY | END 2023-10-19 13:57 | disposition home or self-care (01) | LOC: WOUND 13:56 | PROVIDERS: Visit Provider Nurse Practitioner Family | DX: I87.312 Chronic venous hypertension (idiopathic) with ulcer of left lower extremity (principal); I87.2 Venous insufficiency (chronic) (peripheral); L97.822 Non-pressure chronic ulcer of other part of left lower leg with fat layer exposed; I89.0 Lymphedema, not elsewhere classified; F17.210 Nicotine dependence, cigarettes, uncomplicated | CPT/HCPCS: 11042 ==

== ENCOUNTER 2023-10-26 13:55 | Outpatient (CLI) | payer MEDICARE, MEDICAID, SELFPAY | END 2023-10-26 13:56 | disposition home or self-care (01) | LOC: WOUND 13:55 | PROVIDERS: Visit Provider Nurse Practitioner Family | DX: I87.312 Chronic venous hypertension (idiopathic) with ulcer of left lower extremity (principal); I87.2 Venous insufficiency (chronic) (peripheral); L97.822 Non-pressure chronic ulcer of other part of left lower leg with fat layer exposed; I89.0 Lymphedema, not elsewhere classified | CPT/HCPCS: 11042 ==

== ENCOUNTER 2023-11-02 13:53 | Outpatient (CLI) | payer MEDICARE, MEDICAID, SELFPAY | END 2023-11-02 13:54 | disposition home or self-care (01) | LOC: WOUND 13:56 | PROVIDERS: Visit Provider Physician Assistant | DX: I87.312 Chronic venous hypertension (idiopathic) with ulcer of left lower extremity (principal); I87.2 Venous insufficiency (chronic) (peripheral); L97.822 Non-pressure chronic ulcer of other part of left lower leg with fat layer exposed; I89.0 Lymphedema, not elsewhere classified | CPT/HCPCS: 87070; 87186; 97597 ==

== ENCOUNTER 2023-11-09 13:57 | Outpatient (CLI) | payer MEDICARE, MEDICAID, SELFPAY | END 2023-11-09 13:58 | disposition home or self-care (01) | LOC: WOUND 13:57 | PROVIDERS: Visit Provider Nurse Practitioner Family | DX: I87.312 Chronic venous hypertension (idiopathic) with ulcer of left lower extremity (principal); I87.2 Venous insufficiency (chronic) (peripheral); I89.0 Lymphedema, not elsewhere classified; L97.822 Non-pressure chronic ulcer of other part of left lower leg with fat layer exposed; F17.210 Nicotine dependence, cigarettes, uncomplicated | CPT/HCPCS: 97597 ==

== ENCOUNTER 2023-11-16 13:52 | Outpatient (CLI) | payer MEDICARE, MEDICAID, SELFPAY | END 2023-11-16 13:53 | disposition home or self-care (01) | LOC: WOUND 13:54 | PROVIDERS: Visit Provider Nurse Practitioner Family | DX: I87.312 Chronic venous hypertension (idiopathic) with ulcer of left lower extremity (principal); I87.2 Venous insufficiency (chronic) (peripheral); I89.0 Lymphedema, not elsewhere classified; L97.822 Non-pressure chronic ulcer of other part of left lower leg with fat layer exposed; F17.210 Nicotine dependence, cigarettes, uncomplicated | CPT/HCPCS: 11042 ==

== ENCOUNTER 2023-11-23 14:11 | Outpatient (CLI) | payer MEDICARE, MEDICAID, SELFPAY | END 2023-11-23 14:12 | disposition home or self-care (01) | LOC: WOUND 14:11 | PROVIDERS: Visit Provider Nurse Practitioner Family | DX: I87.312 Chronic venous hypertension (idiopathic) with ulcer of left lower extremity (principal); I87.2 Venous insufficiency (chronic) (peripheral); L97.822 Non-pressure chronic ulcer of other part of left lower leg with fat layer exposed | CPT/HCPCS: 97597 ==

== ENCOUNTER 2023-11-30 13:56 | Outpatient (CLI) | payer MEDICARE, MEDICAID, SELFPAY | END 2023-11-30 13:57 | disposition home or self-care (01) | LOC: WOUND 13:56 | PROVIDERS: Visit Provider Nurse Practitioner Family | DX: I87.312 Chronic venous hypertension (idiopathic) with ulcer of left lower extremity (principal); I87.2 Venous insufficiency (chronic) (peripheral); I89.0 Lymphedema, not elsewhere classified; L97.822 Non-pressure chronic ulcer of other part of left lower leg with fat layer exposed | CPT/HCPCS: 11042 ==

== ENCOUNTER 2023-12-07 14:02 | Outpatient (CLI) | payer MEDICARE, MEDICAID, SELFPAY | END 2023-12-07 14:03 | disposition home or self-care (01) | LOC: WOUND 14:02 | PROVIDERS: Visit Provider Nurse Practitioner Family | DX: I87.312 Chronic venous hypertension (idiopathic) with ulcer of left lower extremity (principal); I87.2 Venous insufficiency (chronic) (peripheral); I89.0 Lymphedema, not elsewhere classified; L97.822 Non-pressure chronic ulcer of other part of left lower leg with fat layer exposed; F17.210 Nicotine dependence, cigarettes, uncomplicated | CPT/HCPCS: 97597 ==

== ENCOUNTER 2023-12-21 14:00 | Outpatient (CLI) | payer MEDICARE, MEDICAID, SELFPAY | END 2023-12-21 14:01 | disposition home or self-care (01) | LOC: WOUND 14:00 | PROVIDERS: Visit Provider Nurse Practitioner Family | DX: I87.312 Chronic venous hypertension (idiopathic) with ulcer of left lower extremity (principal); I87.2 Venous insufficiency (chronic) (peripheral); I89.0 Lymphedema, not elsewhere classified; L97.822 Non-pressure chronic ulcer of other part of left lower leg with fat layer exposed | CPT/HCPCS: 15271; Q4101 ==

== ENCOUNTER 2023-12-28 08:12 | Outpatient (CLI) | payer MEDICARE, MEDICAID, SELFPAY | END 2023-12-28 08:13 | disposition home or self-care (01) | LOC: WOUND 01-23 17:05 | PROVIDERS: Visit Provider Nurse Practitioner Family | DX: I87.312 Chronic venous hypertension (idiopathic) with ulcer of left lower extremity (principal); I87.2 Venous insufficiency (chronic) (peripheral); I89.0 Lymphedema, not elsewhere classified; L97.822 Non-pressure chronic ulcer of other part of left lower leg with fat layer exposed | CPT/HCPCS: G0463 ==

== ENCOUNTER 2024-01-04 13:56 | Outpatient (CLI) | payer MEDICARE, MEDICAID, SELFPAY | END 2024-01-04 13:57 | disposition home or self-care (01) | LOC: WOUND 13:56 | PROVIDERS: Visit Provider Nurse Practitioner Family | DX: I87.312 Chronic venous hypertension (idiopathic) with ulcer of left lower extremity (principal); I87.2 Venous insufficiency (chronic) (peripheral); I89.0 Lymphedema, not elsewhere classified; L97.822 Non-pressure chronic ulcer of other part of left lower leg with fat layer exposed | CPT/HCPCS: 11042 ==

== ENCOUNTER 2024-01-11 13:59 | Outpatient (CLI) | payer MEDICARE, MEDICAID, SELFPAY | END 2024-01-11 14:00 | disposition home or self-care (01) | LOC: WOUND 13:59 | PROVIDERS: Visit Provider Nurse Practitioner Family | DX: I87.312 Chronic venous hypertension (idiopathic) with ulcer of left lower extremity (principal); I87.2 Venous insufficiency (chronic) (peripheral); I89.0 Lymphedema, not elsewhere classified; L97.822 Non-pressure chronic ulcer of other part of left lower leg with fat layer exposed | CPT/HCPCS: 11042 ==

== ENCOUNTER 2024-01-18 14:02 | Outpatient (CLI) | payer MEDICARE, MEDICAID, SELFPAY | END 2024-01-18 14:03 | disposition home or self-care (01) | LOC: WOUND 14:02 | PROVIDERS: Visit Provider Nurse Practitioner Family | DX: I87.312 Chronic venous hypertension (idiopathic) with ulcer of left lower extremity (principal); I87.2 Venous insufficiency (chronic) (peripheral); I89.0 Lymphedema, not elsewhere classified; L97.822 Non-pressure chronic ulcer of other part of left lower leg with fat layer exposed; F17.210 Nicotine dependence, cigarettes, uncomplicated | CPT/HCPCS: 11042 ==

== ENCOUNTER 2024-01-25 13:57 | Outpatient (CLI) | payer MEDICARE, MEDICAID, SELFPAY | END 2024-01-25 13:58 | disposition home or self-care (01) | LOC: WOUND 13:57 | PROVIDERS: Visit Provider Nurse Practitioner Family | DX: I87.311 Chronic venous hypertension (idiopathic) with ulcer of right lower extremity (principal); I87.2 Venous insufficiency (chronic) (peripheral); I89.0 Lymphedema, not elsewhere classified; L97.822 Non-pressure chronic ulcer of other part of left lower leg with fat layer exposed; F17.210 Nicotine dependence, cigarettes, uncomplicated | CPT/HCPCS: 11042 ==

== ENCOUNTER 2024-02-08 14:05 | Outpatient (CLI) | payer MEDICARE, MEDICAID, SELFPAY | END 2024-02-08 14:06 | disposition home or self-care (01) | LOC: WOUND 14:05 | PROVIDERS: Visit Provider Nurse Practitioner Family | DX: I87.312 Chronic venous hypertension (idiopathic) with ulcer of left lower extremity (principal); I87.2 Venous insufficiency (chronic) (peripheral); I89.0 Lymphedema, not elsewhere classified; L97.822 Non-pressure chronic ulcer of other part of left lower leg with fat layer exposed; F17.210 Nicotine dependence, cigarettes, uncomplicated | CPT/HCPCS: 11042 ==

== ENCOUNTER 2024-03-21 14:02 | Outpatient (CLI) | payer MEDICARE, MEDICAID, SELFPAY | END 2024-03-21 14:03 | disposition home or self-care (01) | LOC: WOUND 14:02 | PROVIDERS: Visit Provider Nurse Practitioner Family | DX: I87.312 Chronic venous hypertension (idiopathic) with ulcer of left lower extremity (principal); I87.2 Venous insufficiency (chronic) (peripheral); I89.0 Lymphedema, not elsewhere classified; L97.828 Non-pressure chronic ulcer of other part of left lower leg with other specified severity | CPT/HCPCS: 11055; G0463 ==

== ENCOUNTER 2024-05-22 01:04 | Outpatient (CLI) | payer MEDICARE, MEDICAID, SELFPAY | END 2024-05-22 01:05 | disposition home or self-care (01) | LOC: AMB 06-05 06:15 | PROVIDERS: Visit Provider Family Medicine | DX: R06.02 Shortness of breath (principal) | CPT/HCPCS: A0425; A0427 ==

== ENCOUNTER 2024-06-24 14:05 | Outpatient (CLI) | payer MEDICARE, MEDICAID, SELFPAY | END 2024-06-24 14:06 | disposition home or self-care (01) | LOC: NFLDREF 06-28 01:37 | PROVIDERS: Visit Provider Physician Assistant | DX: N39.0 Urinary tract infection, site not specified (principal) | CPT/HCPCS: 87086 ==

== ENCOUNTER 2024-07-10 10:46 | Outpatient (CLI) | payer MEDICARE, MEDICAID, SELFPAY | END 2024-07-10 10:47 | disposition home or self-care (01) | LOC: NFLDREF 07-13 05:19 | PROVIDERS: Visit Provider Physician Assistant | DX: R30.0 Dysuria (principal); N39.0 Urinary tract infection, site not specified | CPT/HCPCS: 87086 ==

== ENCOUNTER 2025-02-23 13:12 | Outpatient (CLI) | payer MEDICARE, MEDICAID, SELFPAY | END 2025-02-23 13:13 | disposition home or self-care (01) | LOC: NFLDREF 02-25 08:43 | PROVIDERS: Visit Provider Physician Assistant | DX: R30.0 Dysuria (principal) | CPT/HCPCS: 87086 ==

== ENCOUNTER 2025-03-12 17:43 | Outpatient (CLI) | payer MEDICARE, MEDICAID, SELFPAY | END 2025-03-12 17:44 | disposition home or self-care (01) | PROVIDERS: Visit Provider Emergency Medicine | DX: R06.09 Other forms of dyspnea (principal) | CPT/HCPCS: A0425; A0427 ==